=== PATIENT | female | born 1970 | race Caucasian/White ===

== ENCOUNTER 2016-10-04 14:02 | Emergency (ER) | payer OTHER ==
[~2016-10-04] VITALS: Ht 149.9 cm; Wt 54.5 kg
--- NOTE | 2016-10-04 14:25 | ED.REPORT ---
HPI-Stroke / CVA Oct 04, 2016 ED Provider: The patient is a 46 year old female with history of Chiari malformation and hemiplegic migraines, who was brought to the emergency department by EMS. She was initially seen at [place] where they were concerned about a stroke and sent her here. She developed a headache yesterday that began significantly worse today. She has also experienced nausea, vomiting, facial droop, and anxiety. The patient states her symptoms are similar to her normal migraines. Her last migraine was 2-3 months ago. She had surgery for the Chiari malformation 2-3 years ago. Her migraines are normally treated with IV fluids and Dilaudid. She sees a neurologist at [facility] and at . Nursing Notes Stated Complaint: STROKE Nursing Notes Reviewed: Yes Allergies: Coded Allergies: NSAIDS (Non-Steroidal Anti-Inflamma (Verified Allergy, Unknown, 10/04/16) Sulfa (Sulfonamide Antibiotics) (Verified Allergy, Unknown, 10/04/16) codeine (Verified Allergy, Unknown, 10/04/16) diphenhydramine (Verified Allergy, Unknown, 10/04/16) haloperidol (Verified Allergy, Unknown, 10/04/16) morphine (Verified Allergy, Unknown, 10/04/16) Scheduled PRN oxyCODONE-Acetaminophen 5-325 mg (oxyCODONE-Acetaminophen 5-325 mg) 1 Each Tablet 1-2 TAB PO Q6H PRN PRN For Pain General Time Seen by Provider: 13:25 Chief Complaint Other (headache) Hx Obtained From: Patient Arrived By: Walk-in Time last known well 1230 today but she is complaining of her normal migraine symptoms, headache started yesterday. Sudden in Onset?: Yes Symptom Duration: Since onset Progression Since Onset: Constant Location: : Head Quality: Painful Severity: Current: Moderate Severity: Maximum: Severe Associated with: Reports: Nausea, Vomiting Additional Notes: +facial droop, anxiety Pertinent Negative: Pt denies other symptoms Recent Healthcare: No recent hospitalization, Recent doctor visit Similar Sx Previous: Yes Past Medical History Past Medical History Notes: Significant allergy list Past Medical History Chiari malformation Hemiplegic migraines Colitis Family History Noncontributory Social History Other Social History: Good social support Ambulatory Status Independent Review of Systems GI: Reports: Nausea, Vomiting Neurologic: Reports: Focal weakness (facial droop), Headache Psychiatric: Reports: Anxiety Complete sys rev & neg: except as marked. Physical Exam Initial Vital Signs Vital Signs (First) Date Time Temp Pulse Resp B/P Pulse Ox O2 Delivery O2 Flow Rate FiO2 10/04/16 14:30 36.3 102 22 132/90 99 Room Air Initial VS: Reviewed ENT: Mucous membranes moist, Conjunctiva normal, No scleral icterus Abdomen / GI: Soft, Non-tender, No guarding, No rebound, No distention Back: No CVA tenderness Lymphatic: No lymphadenopathy Extremities: Vascular intact, Neuro intact, No swelling, No tenderness Skin: Warm, Dry, No cyanosis Psychiatric: Mood/affect normal, Behavior normal, Normal thought content General/Constitutional: Awake, Alert, Cooperative Head / Eyes: Atraumatic, Normocephalic, PERRL, EOMI Neck: Supple, Full range of motion, No swelling, Non-tender, No midline vertebral tend, No carotid bruit Respiratory / Chest: Atraumatic, Breath sounds NL, Breath sounds = bilat, No respiratory distress, No rales, No rhonchi, No wheezing Cardiovascular: Heart rate NL, Regular rhythm, Heart sounds NL, No murmurs, No rubs, Peripheral circulation NL Neurologic: Oriented X3, Speech NL, No sensory deficits, CN II - XII intact Left-sided facial droop, left-sided weakness - both consistent with hemiplegic migraines. Interpretation & Diagnostics Lab Results Interpretation Result Diagram: 10/04/16 1435 10/04/16 1435 Test 10/04/16 14:35 White Blood Count 9.8th/mm3 (3.8-10.1) Red Blood Count 4.91mil/mm3 (3.90-5.20) Hemoglobin 13.9g/dL (12.0-15.6) Hematocrit 41.7% (35.0-46.0) Mean Corpuscular Volume 84.9fL (81-100) Mean Corpuscular Hemoglobin 28.3pg (27.0-35.0) Mean Corpuscular Hemoglobin Concent 33.3% (32.0-37.0) Red Cell Distribution Width 13.1% (12.3-15.4) Platelet Count 510bil/L (150-400) Neutrophils (%) (Auto) 66.7% (40-74) Lymphocytes (%) (Auto) 24.0% (14-46) Monocytes (%) (Auto) 6.7% (4-12) Eosinophils (%) (Auto) 2.1% (0-5) Basophils (%) (Auto) 0.3% (0-3) Prothrombin Time 9.8sec (8.1-12.5) Prothromb Time International Ratio 0.92ratio Activated Partial Thromboplast Time 28.4sec (22.8-33.0) Sodium Level 136mEq/L (134-144) Potassium Level 3.8mEq/L (3.5-5.2) Chloride Level 101mEq/L (97-108) Carbon Dioxide Level 18mmol/L (18-29) Blood Urea Nitrogen 9mg/dL (6-24) Creatinine 0.45mg/dL (0.57-1.00) Estimat Glomerular Filtration Rate 216mL/min (>59) Glucose Level 75mg/dL (60-99) Calcium Level 8.9mg/dL (8.5-10.1) Total Bilirubin 0.3mg/dL (0.0-1.2) Aspartate Amino Transf (AST/SGOT) 16U/L (0-50) Alanine Aminotransferase (ALT/SGPT) < 5U/L (0-32) Alkaline Phosphatase 82U/L (25-150) Troponin T < 0.010ug/L (0.0-0.011) Total Protein 7.2g/dL (6.4-8.4) Albumin 4.6g/dL (3.4-5.0) ECG Interpretation ECG Interpretation: Time: 15:18 Interpreted by: ED physician Normal ECG Interpretation: Normal ECG w/ rate of... (92), Normal rate, Normal sinus rhythm, No acute ischemic changes, Normal QRS, Normal axis, Normal intervals, Adequate tracing CT Head Interpretation IMPRESSION: 1. No acute intracranial disease process. 2. Findings telephoned to Dr. Alondra Barreto on 10/04/2016 at 1433 hrs. This study fulfills neurological imaging criteria for inclusion or exclusion of acute stroke therapies based on available published neurological imaging guidelines. Dictated by: Renetta Waldron MD, PhD on 10/04/2016 at 14:34 Study: Head CT no contrast Interpretation / Wet Read by: Interpret - Radiologist, Discussed w radiologist Procedures PROCEDURE: trigger point injection NOTES: The area was cleaned with Hibiclens. I injected 3 cc of 0.5 % bupivacaine into trigger point on the right side of her neck. She tolerated procedure well. Her condition was improved. Re-Eval/Medical Decision Source of Hx: Old records, EMS Re-Evaluation/Progress : Time of Eval: 16:53 Re-Evaluation/Progress Note: Rechecked the patient. She still has a headache but is feeling much better. The patient does mention hitting the back of her neck while getting into the car a few weeks ago. She has noticed some pain since the injury and wonders if this is what caused her headache. On re-examination she has a knot on the right paraspinous region between C4-C6 at a site of localized trauma. Discussed option for trigger injection, she would like to move forward with that. She will then be discharged home. Discussed rebound symptoms when using narcotics to treat migraines. She understands these risks. All questions were addressed. Counseled Regarding: Diagnosis, Lab results, Need for follow-up, When/why to return to ED Patient Discharge & Departure Impression: Primary Impression: Hemiplegic migraine Status migrainosus presence: without status migrainosus Intractability: not intractable Qualified Code: G43.409 - Hemiplegic migraine, not intractable, without status migrainosus Additional Impression: Trigger point with neck pain Disposition: Home Discharge Condition All VS Reviewed: Yes Condition: Stable Additional Instructions: Thank you for entrusting us with your care today. Your workup today is reassuring. There is no sign of an acute stroke. Use the Percocet as needed for breakthrough pain. Followup with your regular doctor and neurologists to further manage your migraines. Please return to the emergency department for any new or concerning symptoms. [facility] Attestation Portions of this note were transcribed by Monika Rizzo. I, Dr. Barreto personally performed the history, physical exam and medical decision-making; I reviewed and confirmed the accuracy of the information in the transcribed note. Signed by: Gian Emery, 10/04/2016 at 1720. Alondra Barreto MD Oct 04, 2016 14:24 Monika Rizzo Oct 04, 2016 14:40
[2016-10-04 14:30] VITALS: BP 132/90; PULSE 102; RESP 22; O2SAT 99
--- NOTE | 2016-10-04 14:38 | DRSVH ---
PROCEDURE: CT BRAIN (TPA) ([id number]) INDICATIONS: Stroke TECHNIQUE: Noncontrast 4.5 mm thick angled axial sections acquired from the foramen magnum to the vertex, with c oronal reformats. COMPARISON: None. FINDINGS: Image quality: Excellent. CSF spaces: Basal cisterns are patent. No extra-axial fluid collections. Ventricles are normal in size and shape. Brain: No midline shift. No intracranial masses or hemorrhage. Hawkins-white matter interface is norm al. Skull and face: Postsurgical changes compatible with suboccipital craniectomy are noted throughout li karuna related to Chiari malformation. Please correlate with clinical history. The visualized facial ti angi are intact, without suspicious lesions. Sinuses: Visualized sinuses and mastoids are clear. IMPRESSION: 1. No acute intracranial disease process. 2. Findings telephoned to Dr. Alondra Barreto on 10/04/2016 at 1433 hrs. This study fulfills neurological imaging criteria for inclusion or exclusion of acute stroke therapie s based on available published neurological imaging guidelines. Dictated by: Renetta Waldron MD, PhD on 10/04/2016 at 14:34 Approved by: Renetta Waldron MD, PhD on 10/04/2016 at 14:37
[2016-10-04] MEDS ORDERED: 0.9% Sodium Chloride 1,000 ML IV ONE (14:41)
[2016-10-04] MEDS: HYDROmorphone 1 mg/mL Inj IVPUSH PRN ×5 (14:42→17:12)
[2016-10-04] MEDS ORDERED: Dexamethasone 10 mg/mL Inj IVPUSH ONE (14:45)
[2016-10-04] MEDS ORDERED: Ondansetron 2 mg/mL 2 mL Inj IVPUSH ONE (14:45)
[2016-10-04 14:47] LABS: BASOPHILS % (AUTO) 0.3 % (0-3); EOSINOPHILS % (AUTO) 2.1 % (0-5); MONOCYTES % (AUTO) 6.7 % (4-12); Mean Corpuscular Hemoglobin 28.3 pg (27.0-35.0); Mean Corpuscular Volume 84.9 fL (81-100); NEUTROPHILS % (AUTO) 66.7 % (40-74); Platelet Count 510 bil/L (150-400)
[2016-10-04 15:10] LABS: INR 0.92 ratio
[2016-10-04 15:36] LABS: TROPONIN T < 0.010 ug/L (0.0-0.011)
[2016-10-04 16:16] VITALS: BP 115/68; PULSE 55; RESP 16; O2SAT 95
[2016-10-04 16:34] VITALS: BP 103/81; PULSE 102; RESP 16; O2SAT 97
[2016-10-04] MEDS ORDERED: HYDROmorphone 1 mg/mL Inj IVPUSH PRN (17:00)
[2016-10-04] MEDS ORDERED: Bupivacaine-MPF 0.5% 30 mL Inj ONE (17:01)
[2016-10-04] MEDS ORDERED: OXYC1TAB24 PO (17:12)
[2016-10-04 17:48] VITALS: BP 133/75; PULSE 101; RESP 16; O2SAT 97
== END 2016-10-04 17:48 | disposition home or self-care (01) ==
LOC: EDBD 14:02 → SED 14:02
DX: G43.409 Hemiplegic migraine, not intractable, without status migrainosus (principal); M54.2 Cervicalgia; W22.09XA Striking against other stationary object, initial encounter; Y93.89 Activity, other specified; Y99.8 Other external cause status; Y92.89 Other specified places as the place of occurrence of the external cause; G93.5 Compression of brain; Z88.2 Allergy status to sulfonamides; Z88.5 Allergy status to narcotic agent; Z88.6 Allergy status to analgesic agent; Z88.8 Allergy status to other drugs, medicaments and biological substances
CPT/HCPCS: 20552; 36415; 70450; 80053; 84484; 85025; 85610; 85730; 93005; 96374; 96375; 96376; 99285; J1100; J1170; J2060; J2405; J7030